=== PATIENT | male | born 1970 ===

== ENCOUNTER 2020-11-22 13:07 | Emergency (ER) | payer OTHER ==
[2020-11-22] MEDS ORDERED: Ketorolac Tromethamine 30 MG/ML VIAL ONE (14:08)
[2020-11-22] MEDS ORDERED: predniSONE 20 MG TAB ONE (14:08)
== END 2020-11-22 14:25 | disposition home or self-care (01) ==
LOC: MADERS 13:07
DX: S33.5XXA Sprain of ligaments of lumbar spine, initial encounter (principal); X50.1XXA Overexertion from prolonged static or awkward postures, initial encounter
CPT/HCPCS: 96372; 99283; J1885; J7512